=== PATIENT | male | born 1990 ===

== ENCOUNTER 2021-10-22 15:38 | Emergency (ER) | payer SELFPAY ==
[2021-10-22 15:55] VITALS: BP 124/88
[2021-10-22 16:32] LABS: Hematocrit 46.3 % (35.5-45.6); Hemoglobin 15.3 gm/dl (11.8-15.2); Mean Corpuscular HGB Conc 33 % (32-34); Mean Corpuscular Volume 85 fl (84-94); Red Blood Count 5.43 M/mm3 (3.65-5.03); Red Cell Distribution Width 12.7 % (13.2-15.2)
[2021-10-22 16:34] LABS: Platelet Count 229 K/mm3 (140-440)
[2021-10-22 16:50] LABS: Alanine Aminotransferase 14 units/L (7-56); Albumin 3.7 g/dL (3.9-5); BUN/Creatinine Ratio 8; Blood Urea Nitrogen 10 mg/dL (9-20); Calcium 8.8 mg/dL (8.4-10.2); Hemolysis Index 13
== END 2021-10-22 16:04 | disposition left against medical advice (07) ==
LOC: ED 15:38
DX: R10.9 Unspecified abdominal pain (principal); Z53.21 Procedure and treatment not carried out due to patient leaving prior to being seen by health care provider
CPT/HCPCS: 36415; 80053; 83690; 85027

== ENCOUNTER 2021-10-23 20:06 | Emergency (ER) | payer SELFPAY ==
[2021-10-23 21:10] VITALS: BP 143/89
== END 2021-10-24 00:45 | disposition left against medical advice (07) ==
LOC: ED 20:06
DX: R10.9 Unspecified abdominal pain (principal); Z53.21 Procedure and treatment not carried out due to patient leaving prior to being seen by health care provider